=== PATIENT | female | born 1950 | race Caucasian/White ===

== ENCOUNTER → 2016-10-02 | Outpatient (CLI) | payer OTHER | LOC: US 13:20 | DX: N64.4 Mastodynia (principal); N63 Unspecified lump in breast | CPT/HCPCS: 76641-RT ==

== ENCOUNTER → 2021-05-21 | Outpatient (CLI) | payer OTHER ==
[~2021-05-21] MED LIST: CYCLOBENZAPRINE10 MG PO; FEXOFENADINE H180 MG PO; GABAPENTIN800 MG PO; HYDROCHLOROTHIA25 MG PO; MELOXICAM7.5 MG PO; METFORMIN HCL500 MG PO; METOPROLOL TART50 MG PO; TYLENOL ARTHRITIS PO; VITAMIN D325 MC6 PO
[2021-05-21 11:10] LABS: HEMOGLOBIN 13.2 gm/dl (12.3-15.3); RED BLOOD COUNT 4.65 M/UL (4.00-5.10); WHITE BLOOD COUNT 7.4 K/UL (4.5-11.0)
[2021-05-21 11:31] LABS: BUN/CREATININE RATIO 22 (0-10)
== END ==
LOC: OPSV2 10:00
PROVIDERS: Obstetrics & Gynecology
DX: Z01.818 Encounter for other preprocedural examination (principal); N95.0 Postmenopausal bleeding
CPT/HCPCS: 71046; 80053; 81001; 85025; 93005

== ENCOUNTER → 2021-05-30 | Day surgery (SDC) | payer OTHER ==
[~2021-05-30] MED LIST changes: +DOCUSATE SODIU250 MG PO; +HYDROCODONE-AC1 EACH PO; +IBUPROFEN600 MG PO; +LO-DOSE ASPIRIN81 MG PO
== END | disposition home or self-care (01) ==
LOC: OR 05:20
DX: N80.0 Endometriosis of uterus (principal); D25.1 Intramural leiomyoma of uterus; N84.0 Polyp of corpus uteri; N95.0 Postmenopausal bleeding; N72 Inflammatory disease of cervix uteri; N83.8 Other noninflammatory disorders of ovary, fallopian tube and broad ligament; N85.01 Benign endometrial hyperplasia; I10 Essential (primary) hypertension; E11.9 Type 2 diabetes mellitus without complications; M81.0 Age-related osteoporosis without current pathological fracture; G62.9 Polyneuropathy, unspecified; M51.36 Other intervertebral disc degeneration, lumbar region; E55.9 Vitamin D deficiency, unspecified; J30.9 Allergic rhinitis, unspecified; E66.01 Morbid (severe) obesity due to excess calories; Z79.4 Long term (current) use of insulin; Z20.822 Contact with and (suspected) exposure to COVID-19
CPT/HCPCS: 82962; C1769; J0690; J1100; J1170; J2001; J2250; J2270; J2405; J2704; J2710; J3010; J7030; J7050; J7120

== ENCOUNTER → 2022-02-06 | Outpatient (CLI) | payer MEDICARE ==
[~2022-02-06] MED LIST changes: +CYMBALTA60 MG PO; +MIRALAX 119 GR119 GM PO
[2022-02-06 11:06] LABS: RED BLOOD COUNT 4.92 M/UL (4.00-5.10); WHITE BLOOD COUNT 7.2 K/UL (4.5-11.0)
[2022-02-06 11:35] LABS: BUN/CREATININE RATIO 23 (0-10)
== END ==
LOC: EDSTATUS 10:00 → OPSV2 10:00
PROVIDERS: Orthopaedic Surgery
DX: Z01.818 Encounter for other preprocedural examination (principal); M17.11 Unilateral primary osteoarthritis, right knee
CPT/HCPCS: 71046; 80048; 83036; 85025; 93005

== ENCOUNTER → 2022-02-18 | Outpatient (CLI) | payer MEDICARE ==
[~2022-02-18] MED LIST changes: +ASPIRIN 325MG325 MG PO; +FLUCONAZOLE150 MG PO; +TYLENOL 8 HOUR650 MG PO; -TYLENOL ARTHRITIS PO
[2022-02-18 13:04] LABS: BUN/CREATININE RATIO 23 (0-10)
== END ==
LOC: LAB 10:20
PROVIDERS: Orthopaedic Surgery
DX: Z01.812 Encounter for preprocedural laboratory examination (principal)
CPT/HCPCS: 36415; 80048; 86850; 86900; 86901

== ENCOUNTER 2022-02-19 07:58 | Day surgery (SDC) | payer MEDICARE ==
[~2022-02-19] VITALS: Ht 167.6 cm; Wt 114.8 kg
[~2022-02-19 07:58] MED LIST changes: -ASPIRIN 325MG325 MG PO; -FLUCONAZOLE150 MG PO
[2022-02-19] MEDS ORDERED: FLUCONAZOLE150 MG PO (15:47)
[2022-02-20 05:05] LABS: HEMOGLOBIN 11.8 gm/dl (12.3-15.3); RED BLOOD COUNT 4.13 M/UL (4.00-5.10); WHITE BLOOD COUNT 18.5 K/UL (4.5-11.0)
[2022-02-20] MEDS ORDERED: ASPIRIN 325MG325 MG PO (08:23)
== END 2022-02-20 13:11 | disposition home or self-care (01) ==
LOC: OR 07:58 → M/S 15:19 → OR 15:30 → CCU 17:18 → OR 02-20 13:11
PROVIDERS: Internal Medicine
DX: M17.0 Bilateral primary osteoarthritis of knee (principal); M79.4 Hypertrophy of (infrapatellar) fat pad; M25.761 Osteophyte, right knee; M21.161 Varus deformity, not elsewhere classified, right knee; M21.061 Valgus deformity, not elsewhere classified, right knee; E11.9 Type 2 diabetes mellitus without complications; I10 Essential (primary) hypertension; E66.01 Morbid (severe) obesity due to excess calories; F41.9 Anxiety disorder, unspecified; Z85.3 Personal history of malignant neoplasm of breast; Z79.82 Long term (current) use of aspirin
CPT/HCPCS: 36415; 73560; 76000; 80053; 82962; 84132; 85025; 94664; 94760; 97110-GP-CQ; 97116-GP-CQ; 97161; 97166; 97535; C1713; C1776; J0690; J1100; J1170; J1885; J2001; J2250; J2270; J2274; J2405; J2704; J2795

== ENCOUNTER → 2022-03-14 | Outpatient (CLI) | payer MEDICARE ==
[~2022-03-14] MED LIST changes: +ASPIRIN 325MG325 MG PO; +FLUCONAZOLE150 MG PO
== END ==
LOC: EXRD 10:54
DX: M79.604 Pain in right leg (principal); M79.89 Other specified soft tissue disorders
CPT/HCPCS: 93971